=== PATIENT | male | born 1955 | race Asian ===

== ENCOUNTER 2017-12-08 07:04 | Day surgery (SDC) | payer OTHER ==
[~2017-12-08] VITALS: Ht 162.6 cm; Wt 52.8 kg
[~2017-12-08 07:04] MED LIST: CALCIUM PO
[2017-12-08 07:46] VITALS: BP 111/77
[2017-12-08] MEDS ORDERED: IBUP-1223 PO (07:46)
[2017-12-08] MEDS ORDERED: HYDR500C PO (07:46)
[2017-12-08] MEDS ORDERED: TOFA11TA PO (07:46)
[2017-12-08] MEDS ORDERED: SODIUM CHLORIDE 0.9% 1,000 ML IV SCH (08:01)
[2017-12-08 08:03] LABS: MEAN CORPUSCULAR HEMOGLOBIN 25.4 pg (27.5-34.5); MEAN CORPUSCULAR HGB CONC 30.4 g/dL (33.2-36.2); MEAN CORPUSCULAR VOLUME 83.7 fL (81-97); MEAN PLATELET VOLUME 7.9 fL (7.4-10.4); PLATELET COUNT 456 x10^3/uL (130-400); RED BLOOD COUNT 3.81 x10^6/uL (4.38-5.82); RED CELL DISTRIBUTION WIDTH 18.6 % (9.4-14.8)
[2017-12-08] MEDS ORDERED: LIDOCAINE-MPF 2% ,5ML ONE (08:08)
[2017-12-08] MEDS ORDERED: FENTANYL PF 100 MCG/2ML ONE (08:22)
[2017-12-08] MEDS ORDERED: MIDAZOLAM 1 MG/ML, 5ML ONE (08:23)
[2017-12-08] MEDS ORDERED: NALOXONE 1 MG/ML, 2ML ONE (08:23)
[2017-12-08] MEDS ORDERED: FLUMAZENIL 0.1 MG/1 ML, 5ML ONE (08:23)
[2017-12-08 08:24] LABS: MD YES
[2017-12-08 08:27] LABS: BAND#(MANUAL) 0.32 x10^3/uL; BANDS%(MANUAL) 6 % (0-7); EOS#(MANUAL) 0.11 x10^3/uL (0.0-0.4); EOS% (MANUAL) 2 % (1-7); LYMPH#(MANUAL) 0.85 x10^3/uL (1-3.4); LYMPHS% (MANUAL) 16 % (22-44); MONOS#(MANUAL) 0.27 x10^3/uL (0.3-2.7); MONOS% (MANUAL) 5 % (2-9); SEG#(MANUAL) 3.76 x10^3/uL (1.8-6.8); SEGS% (MANUAL) 71 % (42-75)
[2017-12-08 08:28] LABS: ANISOCYTOSIS 2+; MICROCYTOSIS 1+; POLYCHROMASIA 1+
[2017-12-08 08:29] LABS: <PLATELET ESTIMATE> INCREASED; <PLT MORPHOLOGY> NORMAL PLT MORPH; BASOPHILLIC STIPPLING 1+; OVALOCYTES 1+; SCHISTOCYTES 1+; TEAR DROPS 1+
== END 2017-12-08 10:55 ==
LOC: OUT 07:04
PROVIDERS: ATTEND Specialist
DX: D46.9 Myelodysplastic syndrome, unspecified (principal); D64.4 Congenital dyserythropoietic anemia; Z88.8 Allergy status to other drugs, medicaments and biological substances; Z87.891 Personal history of nicotine dependence
CPT/HCPCS: 36415; 38222; 77012; 85025; 85060; 85097; 88237; 88264; 88280; 88305; 88311; 88313; 99156; J2250; J3010; J3490; 99157; J2310